=== PATIENT | female | born 1930 | race Caucasian/White ===

== ENCOUNTER 2016-11-16 15:15 | Outpatient (RCR) | payer MEDICARE, BC ==
[~2016-11-16 15:15] MED LIST: ACTONEL35 MG PO; BACTRIM DS 8001 TAB PO; CALCIUM 600600 M2 PO; CALCIUM1 CAP PO; CELEBREX 200MG200 MG PO; CEPHALEXIN500 M1 PO; CLARITIN 1010 MG/TAB PO; CLEOCIN HCL300 MG PO; DETROL LA 4MG4 MG PO; DETROL LA4 PO; GLUCOSAMIN 500 PO; GLUCOSAMINE & C1 CA2 PO; GLUCOSAMINE PO; GLUCOSAMINE500 M1 PO; HCTZ 25MG25 MG PO; LEVAQUIN 5500 MG/TA1 PO; LEVOXYL0.05 MG PO; LIPITOR 10MG10 MG PO; LIPITOR20 MG PO; LOPRESSOR 225 MG/TAB PO; LOPRESSOR 550 MG/TAB PO; MICONAZOLE2%; MICROZIDE12.5 MG PO; MULTAQ400 MG PO; MULTI VITAMINS1 TAB PO; NORVASC 5MG5 MG/TAB PO; NYSTATIN POWDER15 GM TOP; OSCAL W/VIT D250 MG PO; PRILOSEC 20MG20 MG PO; RYBIX ODT50 MG PO; SYNTHROID0.05 MG/TA PO; ULTRAM 50MG TAB50 MG PO; ULTRAM50 MG PO; VESICARE 5MG5 MG PO; VICODIN 5/5001 UDTAB PO; XARELTO10 MG PO; ZOLOFT 50MG50 MG PO; ZOLOFT25 MG PO
[2016-11-19] MEDS ORDERED: PROBIOTIC-MAJOR PO (03:10)
== END 2016-12-09 08:01 | disposition home or self-care (01) ==
LOC: WSOT 15:15
DX: S52.592D Other fractures of lower end of left radius, subsequent encounter for closed fracture with routine healing (principal); M19.042 Primary osteoarthritis, left hand; X58.XXXD Exposure to other specified factors, subsequent encounter
CPT/HCPCS: G8987-GO; G8988-GO; G8989-GO

== ENCOUNTER 2016-11-19 00:06 | Inpatient (IN) | payer MEDICARE, BC ==
[~2016-11-19] VITALS: Ht 162.6 cm; Wt 77.4 kg
[2016-11-19 00:41] LABS: BASO # 0.1 (0.0-0.2); BASO % 0.9 % (0.0-2.0); EOS # 0.1 (0.0-0.7); EOS % 1.4 % (0-4.0); GRAN # 7.3 (1.4-6.5); GRAN % 73.6 % (42.2-75.2); HEMATOCRIT 42.6 % (37.0-47.0); HEMOGLOBIN 13.8 g/dl (12.5-16.0); LYMPH # 1.8 (1.2-3.4); LYMPH % 17.8 % (20.0-51.0); MEAN CELL VOLUME 96 fl (80.0-100.0); MEAN CORPUSCULAR HEMOGLOBIN 31 pg (27.0-31.0); MEAN CORPUSCULAR HGB CONC 32 g/dl (33.0-37.0); MEAN PLATELET VOLUME 9.3 fl (7.4-10.4); MONO # 0.6 (0.1-0.6); MONO % 6.1 % (1.7-9.3); PLATELET COUNT 245 K/mm3 (130-400); RED BLOOD COUNT 4.46 M/mm3 (4.10-5.30); REDCELL DISTRIBUTION WIDTH-CV 12.6 % (11.5-14.5); WHITE BLOOD COUNT 9.9 K/mm3 (4.8-10.8)
[2016-11-19 00:52] LABS: INR 1.4 (0.8-3.0); PROTHROMBIN TIME 15.7 SECONDS (9.7-12.8)
[2016-11-19 00:54] LABS: ADJUSTED CALCIUM 9.6 mg/dL (8.4-10.2); ALANINE AMINOTRANSFERASE 36 U/L (9-52); ALBUMIN 4.4 gm/dL (3.5-5.0); ALKALINE PHOSPHATASE 96 U/L (50-136); ANION GAP 13 mmol/L (7-16); BILIRUBIN,TOTAL 0.7 mg/dL (0.0-1.0); BLOOD UREA NITROGEN 16 mg/dL (7-17); CALCIUM 9.9 mg/dL (8.4-10.2); CARBON DIOXIDE 29 mmol/L (22-30); CHLORIDE 100 mmol/L (98-107); CREATININE, serum 1.08 mg/dL (0.52-1.25); GLUCOSE 135 mg/dL (74-106); LIPASE 56 U/L (23-300); POTASSIUM 4.3 mmol/L (3.4-5.0); SODIUM 141 mmol/L (137-145); TOTAL PROTEIN 7.7 gm/dL (6.4-8.2)
[2016-11-19 00:55] LABS: C-REACTIVE PROTEIN < 0.5 mg/dL (0.0-0.9)
[2016-11-19 01:05] LABS: TROPONIN-I < 0.012 ng/mL (0.000-0.034)
[2016-11-19 02:05] LABS: PH 7 (5-8); SQUAMOUS EPITHELIAL 0-2 /hpf; URINE APPEARANCE Hazy; URINE BACTERIA None Seen /hpf; URINE BILIRUBIN Negative (NEGATIVE); URINE BLOOD Negative (NEGATIVE); URINE COLOR Yellow; URINE GLUCOSE Negative (NEGATIVE); URINE KETONE Negative (NEGATIVE); URINE RBC 0-2 /hpf; URINE UROBILINOGEN Negative (NEGATIVE); URINE WBC 0-2 /hpf
[2016-11-19 02:37] VITALS: BP 174/60; PULSE 65; TEMP 97.7
[2016-11-19] MEDS ORDERED: PROBIOTIC-MAJOR PO (03:10)
[2016-11-19 06:02] VITALS: BP 133/43; PULSE 63; TEMP 98.2
[2016-11-19 10:55] VITALS: BP 132/60; PULSE 68; TEMP 98.7
[2016-11-19 14:26] VITALS: BP 122/65; PULSE 79; TEMP 98.3
[2016-11-19 18:24] VITALS: BP 132/61; PULSE 65; TEMP 98.6
[2016-11-19 22:19] VITALS: BP 164/66; PULSE 85; TEMP 99.3
[2016-11-20 01:39] VITALS: BP 113/52; PULSE 84; TEMP 98.9
[2016-11-20 05:19] VITALS: BP 125/58; PULSE 91; TEMP 98.9
[2016-11-20 07:18] LABS: MEAN CELL VOLUME 100 fl (80.0-100.0); MEAN CORPUSCULAR HGB CONC 31 g/dl (33.0-37.0); MEAN PLATELET VOLUME 9.7 fl (7.4-10.4); PLATELET COUNT 176 K/mm3 (130-400); RED BLOOD COUNT 3.39 M/mm3 (4.10-5.30); REDCELL DISTRIBUTION WIDTH-CV 13.2 % (11.5-14.5); WHITE BLOOD COUNT 4.8 K/mm3 (4.8-10.8)
[2016-11-20 07:22] LABS: ADD PATHOLOGY DIFF REVIEW NO; HEMOGLOBIN 10.5 g/dl (12.5-16.0); MEAN CORPUSCULAR HEMOGLOBIN 31 pg (27.0-31.0)
[2016-11-20 07:30] LABS: CALCIUM 8.4 mg/dL (8.4-10.2); CREATININE, serum 0.89 mg/dL (0.52-1.25); POTASSIUM 4.5 mmol/L (3.4-5.0)
[2016-11-20 07:47] LABS: BAND 25 % (0-10); BASOPHIL 1 % (0-2); EOSINOPHIL 2 % (0-4); HYPOCHROMIA 2+; METAMYELOCYTE 3 % (0-0); NEUTROPHILS 35 % (42.0-75.2); PLATELET ESTIMATE NORMAL (NORMAL); TOTAL CELLS COUNTED 100
[2016-11-20 10:00] VITALS: BP 121/47; PULSE 80; TEMP 98.4
[2016-11-20 13:30] VITALS: BP 133/60; PULSE 88; TEMP 98.9
[2016-11-20 17:22] VITALS: BP 123/54; PULSE 84; TEMP 98.7
[2016-11-20 22:01] VITALS: BP 117/67; BP 151/69; PULSE 75; PULSE 80; TEMP 98
[2016-11-21 05:04] VITALS: BP 151/70; PULSE 86; TEMP 98.2
[2016-11-21 06:59] LABS: ADD PATHOLOGY DIFF REVIEW NO
[2016-11-21 07:03] LABS: MEAN CELL VOLUME 102 fl (80.0-100.0); MEAN CORPUSCULAR HGB CONC 31 g/dl (33.0-37.0); MEAN PLATELET VOLUME 9.7 fl (7.4-10.4); PLATELET COUNT 168 K/mm3 (130-400); RED BLOOD COUNT 3.41 M/mm3 (4.10-5.30); REDCELL DISTRIBUTION WIDTH-CV 12.8 % (11.5-14.5); WHITE BLOOD COUNT 5.8 K/mm3 (4.8-10.8)
[2016-11-21 07:08] LABS: HEMATOCRIT 34.7 % (37.0-47.0); HEMOGLOBIN 10.6 g/dl (12.5-16.0); MEAN CORPUSCULAR HEMOGLOBIN 31 pg (27.0-31.0)
[2016-11-21 08:23] LABS: BAND 29 % (0-10); BASOPHIL 1 % (0-2); EOSINOPHIL 3 % (0-4); METAMYELOCYTE 1 % (0-0); NEUTROPHILS 43 % (42.0-75.2); TOTAL CELLS COUNTED 100
[2016-11-21 09:39] VITALS: BP 146/60; PULSE 88; TEMP 98.7
[2016-11-21 13:24] VITALS: BP 123/72; PULSE 79; TEMP 99.1
[2016-11-21 17:45] VITALS: BP 163/82; PULSE 100; TEMP 98.2
[2016-11-21 21:26] VITALS: BP 177/70; PULSE 71; TEMP 97
[2016-11-22 05:40] VITALS: BP 146/78; PULSE 87; TEMP 97.2
[2016-11-22 09:29] VITALS: BP 147/70; PULSE 74; TEMP 97.7
[2016-11-22 13:52] VITALS: BP 149/57; PULSE 60; TEMP 97.7
== END 2016-11-22 18:30 | disposition home or self-care (01) | DRG 390 ==
LOC: COL.ER 00:06 → SURG 02:02
PROVIDERS: Emergency Medicine; Nurse Practitioner Family; Surgery
DX: K56.69 Other intestinal obstruction (principal); I10 Essential (primary) hypertension; E03.9 Hypothyroidism, unspecified; I48.0 Paroxysmal atrial fibrillation; E78.5 Hyperlipidemia, unspecified; I44.0 Atrioventricular block, first degree; F32.9 Major depressive disorder, single episode, unspecified
CPT/HCPCS: 99222-AI; 99232-AI; 99239; C9113; J1650; J2270; J2405; J7030; Q9967

== ENCOUNTER → 2016-12-05 | Outpatient (CLI) | payer MEDICARE, BC ==
[~2016-12-05] MED LIST changes: +DULCOLAX STOOL100 MG PO; +OMNICEF 300MG300 MG PO; +PROBIOTIC-MAJOR PO; +XARELTO20 MG PO; +XYZAL5 MG PO; +ZITHROMAX500 M2 PO
== END ==
LOC: MHCPAIN 10:16
DX: G89.29 Other chronic pain (principal); M53.3 Sacrococcygeal disorders, not elsewhere classified
CPT/HCPCS: G0463

== ENCOUNTER → 2016-12-22 | Outpatient (CLI) | payer MEDICARE, BC | LOC: MHCPAIN 08:53 | DX: M53.3 Sacrococcygeal disorders, not elsewhere classified (principal) | CPT/HCPCS: G0260; J1040; Q9967 ==

== ENCOUNTER 2017-04-07 08:18 | Inpatient (IN) | payer MEDICARE, BC ==
[~2017-04-07] VITALS: Ht 165.1 cm; Wt 76.5 kg
[~2017-04-07 08:18] MED LIST changes: -DULCOLAX STOOL100 MG PO; -OMNICEF 300MG300 MG PO; -XARELTO20 MG PO; -XYZAL5 MG PO; -ZITHROMAX500 M2 PO
[2017-04-07 09:08] LABS: HEMATOCRIT 37.6 % (37.0-47.0); MEAN CELL VOLUME 99 fl (80.0-100.0); MEAN CORPUSCULAR HEMOGLOBIN 31 pg (27.0-31.0); MEAN CORPUSCULAR HGB CONC 32 g/dl (33.0-37.0); MEAN PLATELET VOLUME 9.7 fl (7.4-10.4); PLATELET COUNT 185 K/mm3 (130-400); RED BLOOD COUNT 3.81 M/mm3 (4.10-5.30); REDCELL DISTRIBUTION WIDTH-CV 12.9 % (11.5-14.5); WHITE BLOOD COUNT 13.6 K/mm3 (4.8-10.8)
[2017-04-07 09:08] LABS: INR 1.6 (0.8-3.0); PROTHROMBIN TIME 18.5 SECONDS (9.7-12.8)
[2017-04-07 09:11] LABS: PARTIAL THROMBOPLASTIN TIME 40.6 SECONDS (26.0-37.0)
[2017-04-07 09:20] LABS: HEMOGLOBIN 11.9 g/dl (12.5-16.0)
[2017-04-07 09:21] LABS: ADD PATHOLOGY DIFF REVIEW NO; ADJUSTED CALCIUM 8.9 mg/dL (8.4-10.2); ALANINE AMINOTRANSFERASE 22 U/L (9-52); ALBUMIN 3.7 gm/dL (3.5-5.0); ALKALINE PHOSPHATASE 66 U/L (50-136); ANION GAP 10 mmol/L (7-16); BILIRUBIN,TOTAL 0.8 mg/dL (0.0-1.0); BLOOD UREA NITROGEN 22 mg/dL (7-17); C-REACTIVE PROTEIN 0.9 mg/dL (0.0-0.9); CALCIUM 8.7 mg/dL (8.4-10.2); CARBON DIOXIDE 26 mmol/L (22-30); CHLORIDE 101 mmol/L (98-107); CREATININE, serum 0.96 mg/dL (0.52-1.25); GLUCOSE 107 mg/dL (74-106); LIPASE 44 U/L (23-300); POTASSIUM 4.6 mmol/L (3.4-5.0); SODIUM 137 mmol/L (137-145); TOTAL PROTEIN 6.2 gm/dL (6.4-8.2)
[2017-04-07 09:29] LABS: B-TYPE NATRIURETIC PEPTIDE 3020 pg/mL (0-450)
[2017-04-07 09:41] LABS: TROPONIN-I < 0.012 ng/mL (0.000-0.034)
[2017-04-07 10:11] LABS: BAND 22 % (0-10); NEUTROPHILS 68 % (42.0-75.2); PLATELET ESTIMATE NORMAL (NORMAL); TOTAL CELLS COUNTED 100
[2017-04-07 10:40] LABS: PH 6 (5-8); URINE APPEARANCE Cloudy; URINE BACTERIA Rare /hpf; URINE BILIRUBIN Negative (NEGATIVE); URINE BLOOD Negative (NEGATIVE); URINE COLOR Yellow; URINE GLUCOSE Negative (NEGATIVE); URINE KETONE Negative (NEGATIVE); URINE RBC 0-2 /hpf; URINE UROBILINOGEN Negative (NEGATIVE)
[2017-04-07 12:28] VITALS: BP 114/52; PULSE 78; TEMP 98.2
[2017-04-07 15:29] VITALS: BP 115/43; PULSE 72; TEMP 96
[2017-04-07 20:49] VITALS: BP 118/50; PULSE 65; TEMP 98.1
[2017-04-08 00:41] VITALS: BP 123/46; PULSE 63; TEMP 98.5
[2017-04-08 04:58] VITALS: BP 125/47; PULSE 68; TEMP 98.2
[2017-04-08 08:06] VITALS: BP 132/84; PULSE 60; TEMP 98.3
[2017-04-08 09:40] LABS: MEAN CELL VOLUME 99 fl (80.0-100.0); MEAN CORPUSCULAR HGB CONC 31 g/dl (33.0-37.0); PLATELET COUNT 170 K/mm3 (130-400); RED BLOOD COUNT 3.55 M/mm3 (4.10-5.30); REDCELL DISTRIBUTION WIDTH-CV 13.2 % (11.5-14.5); WHITE BLOOD COUNT 10.9 K/mm3 (4.8-10.8)
[2017-04-08 09:44] LABS: HEMATOCRIT 35.2 % (37.0-47.0); MEAN CORPUSCULAR HEMOGLOBIN 31 pg (27.0-31.0)
[2017-04-08 09:45] LABS: ADD PATHOLOGY DIFF REVIEW NO
[2017-04-08 09:47] LABS: CALCIUM 8.5 mg/dL (8.4-10.2); CREATININE, serum 0.84 mg/dL (0.52-1.25)
[2017-04-08 11:49] VITALS: BP 147/57; PULSE 71; TEMP 97.6
[2017-04-08 13:54] LABS: BAND 5 % (0-10); NEUTROPHILS 76 % (42.0-75.2); PLATELET ESTIMATE NORMAL (NORMAL); TOTAL CELLS COUNTED 100
[2017-04-08 15:30] VITALS: BP 125/50; PULSE 56
[2017-04-08 20:30] VITALS: BP 125/54; PULSE 62; TEMP 98.3
[2017-04-09 00:03] VITALS: BP 154/60; PULSE 58; TEMP 98
[2017-04-09 05:50] VITALS: BP 108/66; PULSE 64; TEMP 97.7
[2017-04-09 08:14] VITALS: BP 113/53; PULSE 60; TEMP 97.9
[2017-04-09 11:14] VITALS: BP 122/61; PULSE 58; TEMP 97.8
[2017-04-09 15:46] VITALS: BP 117/58; PULSE 60; TEMP 97.1
[2017-04-09 21:04] VITALS: BP 144/77; PULSE 58; TEMP 98.2
[2017-04-10 01:07] VITALS: BP 142/55; PULSE 60; TEMP 97.6
[2017-04-10 05:08] VITALS: BP 137/53; PULSE 71; TEMP 97.7
[2017-04-10] MEDS ORDERED: ZITHROMAX500 M2 PO (07:55)
[2017-04-10] MEDS ORDERED: OMNICEF 300MG300 MG PO (07:55)
[2017-04-10 08:01] VITALS: BP 156/71; PULSE 62; TEMP 97.8
[2017-04-10 08:07] LABS: CALCIUM 8.8 mg/dL (8.4-10.2); CREATININE, serum 0.98 mg/dL (0.52-1.25); MAGNESIUM 2.1 mg/dL (1.6-2.3); POTASSIUM 4.1 mmol/L (3.4-5.0)
[2017-04-10 10:54] VITALS: BP 120/71; PULSE 62; TEMP 98.6
== END 2017-04-10 16:40 | disposition home or self-care (01) | DRG 195 ==
LOC: COL.ER 08:18 → MEDICAL 10:20
PROVIDERS: Emergency Medicine; Internal Medicine; Physician Assistant
DX: J18.9 Pneumonia, unspecified organism (principal); I10 Essential (primary) hypertension; E03.9 Hypothyroidism, unspecified; K21.9 Gastro-esophageal reflux disease without esophagitis; E78.5 Hyperlipidemia, unspecified; R00.1 Bradycardia, unspecified; H92.01 Otalgia, right ear; R07.89 Other chest pain; Z98.1 Arthrodesis status
CPT/HCPCS: 99223-AI; 99232-AI; 99239; J0456; J0696; J2405; J3010; J7030; J7040; J7050; Q9967

== ENCOUNTER 2017-04-19 12:24 | Day surgery (SDC) | payer MEDICARE, BC ==
[~2017-04-19] VITALS: Ht 165.1 cm; Wt 72.7 kg
[~2017-04-19 12:24] MED LIST changes: +OMNICEF 300MG300 MG PO; +ZITHROMAX500 M2 PO
[2017-04-19 13:03] LABS: MEAN CELL VOLUME 98 fl (80.0-100.0); MEAN CORPUSCULAR HGB CONC 33 g/dl (33.0-37.0); MEAN PLATELET VOLUME 8.9 fl (7.4-10.4); PLATELET COUNT 286 K/mm3 (130-400); RED BLOOD COUNT 3.66 M/mm3 (4.10-5.30); REDCELL DISTRIBUTION WIDTH-CV 12.4 % (11.5-14.5); WHITE BLOOD COUNT 6.3 K/mm3 (4.8-10.8)
[2017-04-19 13:09] LABS: HEMATOCRIT 35.7 % (37.0-47.0); HEMOGLOBIN 11.6 g/dl (12.5-16.0); MEAN CORPUSCULAR HEMOGLOBIN 32 pg (27.0-31.0); PROTHROMBIN TIME 11.4 SECONDS (9.7-12.8)
[2017-04-19 13:20] LABS: CREATININE, serum 1.01 mg/dL (0.52-1.25); POTASSIUM 4.5 mmol/L (3.4-5.0)
[2017-04-19] MEDS ORDERED: XYZAL5 MG PO (13:27)
[2017-04-19] MEDS ORDERED: DULCOLAX STOOL100 MG PO (13:28)
[2017-04-19] MEDS ORDERED: MULTAQ400 MG PO (13:30)
[2017-04-19] MEDS ORDERED: XARELTO20 MG PO (13:34)
[2017-04-19 13:47] VITALS: BP 132/64; PULSE 56; TEMP 98.3
[2017-04-19 14:44] VITALS: BP 175/92; PULSE 60
[2017-04-19 16:33] VITALS: BP 138/63; PULSE 60; TEMP 98.3
[2017-04-19 17:03] VITALS: BP 148/83; PULSE 60; TEMP 98.3
[2017-04-19 17:50] VITALS: BP 147/86; PULSE 60; TEMP 98.3
[2017-04-19 20:35] VITALS: BP 146/58; PULSE 59; TEMP 98
[2017-04-20 00:37] VITALS: BP 189/86; PULSE 80; TEMP 98.1
[2017-04-20 01:33] VITALS: BP 158/73
[2017-04-20 04:29] VITALS: BP 183/81; PULSE 72; TEMP 98.8
[2017-04-20 05:25] VITALS: BP 147/95
[2017-04-20 08:07] VITALS: BP 154/71; PULSE 62; TEMP 98.2
[2017-04-20 11:59] VITALS: BP 154/63; PULSE 63; TEMP 97.8
[2017-04-20] MEDS ORDERED: CEPHALEXIN500 M1 PO (13:00)
== END 2017-04-20 17:35 | disposition home or self-care (01) ==
LOC: COL.CAR 12:24 → MEDICAL 16:13 → COL.CAR 04-20 17:35
PROVIDERS: Internal Medicine Cardiovascular Disease
DX: I44.1 Atrioventricular block, second degree (principal); I25.10 Atherosclerotic heart disease of native coronary artery without angina pectoris; I48.91 Unspecified atrial fibrillation; J30.9 Allergic rhinitis, unspecified; I27.0 Primary pulmonary hypertension; K21.9 Gastro-esophageal reflux disease without esophagitis; E78.00 Pure hypercholesterolemia, unspecified; E03.9 Hypothyroidism, unspecified; K55.9 Vascular disorder of intestine, unspecified; M81.8 Other osteoporosis without current pathological fracture; Z79.01 Long term (current) use of anticoagulants
CPT/HCPCS: OP; C1769; C1785; C1898; J0690; J2250; J3010; J7030

== ENCOUNTER → 2017-05-17 | Outpatient (CLI) | payer MEDICARE, BC ==
[~2017-05-17] MED LIST changes: +DULCOLAX STOOL100 MG PO; +XARELTO20 MG PO; +XYZAL5 MG PO
== END ==
LOC: COL.RAD 10:09
DX: E04.2 Nontoxic multinodular goiter (principal)

== ENCOUNTER → 2017-05-31 | Outpatient (CLI) | payer MEDICARE, BC | LOC: COL.RAD 10:29 | DX: M47.816 Spondylosis without myelopathy or radiculopathy, lumbar region (principal); M43.16 Spondylolisthesis, lumbar region; M48.06 Spinal stenosis, lumbar region; Z98.1 Arthrodesis status; M96.1 Postlaminectomy syndrome, not elsewhere classified ==

== ENCOUNTER → 2017-05-31 | Outpatient (CLI) | payer MEDICARE, BC | LOC: MHCPAIN 09:14 | DX: G89.29 Other chronic pain (principal); M47.817 Spondylosis without myelopathy or radiculopathy, lumbosacral region; M53.3 Sacrococcygeal disorders, not elsewhere classified; M96.1 Postlaminectomy syndrome, not elsewhere classified | CPT/HCPCS: G0463 ==

== ENCOUNTER → 2017-06-08 | Outpatient (CLI) | payer MEDICARE, BC | LOC: MHCPAIN 08:42 | DX: M47.817 Spondylosis without myelopathy or radiculopathy, lumbosacral region (principal); M96.1 Postlaminectomy syndrome, not elsewhere classified | CPT/HCPCS: J1040; Q9967 ==

== ENCOUNTER → 2017-06-23 | Outpatient (CLI) | payer MEDICARE, BC | LOC: MHCPAIN 09:28 | DX: G89.29 Other chronic pain (principal); M47.817 Spondylosis without myelopathy or radiculopathy, lumbosacral region; M53.3 Sacrococcygeal disorders, not elsewhere classified; M96.1 Postlaminectomy syndrome, not elsewhere classified; Z79.02 Long term (current) use of antithrombotics/antiplatelets | CPT/HCPCS: G0463 ==

== ENCOUNTER 2017-08-03 20:13 | Inpatient (IN) | payer MEDICARE, BC ==
[~2017-08-03] VITALS: Ht 162.6 cm; Wt 72.5 kg
[2017-08-03 21:09] LABS: PH 7 (5-8); SQUAMOUS EPITHELIAL 0-2 /hpf; URINE APPEARANCE Cloudy; URINE BACTERIA None Seen /hpf; URINE BILIRUBIN Negative (NEGATIVE); URINE BLOOD Negative (NEGATIVE); URINE COLOR Yellow; URINE GLUCOSE Negative (NEGATIVE); URINE KETONE Negative (NEGATIVE); URINE RBC 0-2 /hpf; URINE UROBILINOGEN Negative (NEGATIVE)
[2017-08-03 21:16] LABS: BASO # 0.1 (0.0-0.2); BASO % 0.7 % (0.0-2.0); EOS # 0.2 (0.0-0.7); GRAN # 6.1 (1.4-6.5); GRAN % 75.1 % (42.2-75.2); HEMATOCRIT 41.6 % (37.0-47.0); HEMOGLOBIN 13.4 g/dl (12.5-16.0); LYMPH # 1.2 (1.2-3.4); MEAN CELL VOLUME 96 fl (80.0-100.0); MEAN CORPUSCULAR HEMOGLOBIN 31 pg (27.0-31.0); MEAN CORPUSCULAR HGB CONC 32 g/dl (33.0-37.0); MEAN PLATELET VOLUME 9.4 fl (7.4-10.4); MONO # 0.6 (0.1-0.6); MONO % 7.1 % (1.7-9.3); PLATELET COUNT 215 K/mm3 (130-400); RED BLOOD COUNT 4.32 M/mm3 (4.10-5.30); REDCELL DISTRIBUTION WIDTH-CV 13.2 % (11.5-14.5); WHITE BLOOD COUNT 8.2 K/mm3 (4.8-10.8)
[2017-08-03 21:31] LABS: ADJUSTED CALCIUM 9.5 mg/dL (8.4-10.2); ALANINE AMINOTRANSFERASE 23 U/L (9-52); ALBUMIN 4.2 gm/dL (3.5-5.0); ALKALINE PHOSPHATASE 86 U/L (50-136); ANION GAP 9 mmol/L (7-16); BILIRUBIN,TOTAL 0.7 mg/dL (0.0-1.0); BLOOD UREA NITROGEN 24 mg/dL (7-17); C-REACTIVE PROTEIN < 0.5 mg/dL (0.0-0.9); CALCIUM 9.7 mg/dL (8.4-10.2); CARBON DIOXIDE 29 mmol/L (22-30); CHLORIDE 99 mmol/L (98-107); CREATININE, serum 1.08 mg/dL (0.52-1.25); GLUCOSE 98 mg/dL (74-106); LIPASE 43 U/L (23-300); POTASSIUM 4.5 mmol/L (3.4-5.0); SODIUM 137 mmol/L (137-145); TOTAL PROTEIN 7.2 gm/dL (6.4-8.2)
[2017-08-03 21:42] LABS: TROPONIN-I < 0.012 ng/mL (0.000-0.034)
[2017-08-03 23:40] VITALS: BP 151/102; PULSE 78; TEMP 98
[2017-08-04 01:41] VITALS: BP 150/51; PULSE 73; TEMP 98.6
[2017-08-04 04:59] VITALS: BP 117/70; PULSE 81; TEMP 98.7
[2017-08-04 07:11] LABS: HEMATOCRIT 39.3 % (37.0-47.0); HEMOGLOBIN 12.7 g/dl (12.5-16.0); MEAN CELL VOLUME 97 fl (80.0-100.0); MEAN CORPUSCULAR HEMOGLOBIN 31 pg (27.0-31.0); MEAN CORPUSCULAR HGB CONC 32 g/dl (33.0-37.0); MEAN PLATELET VOLUME 9.5 fl (7.4-10.4); PLATELET COUNT 185 K/mm3 (130-400); RED BLOOD COUNT 4.07 M/mm3 (4.10-5.30); REDCELL DISTRIBUTION WIDTH-CV 13.2 % (11.5-14.5); WHITE BLOOD COUNT 7.3 K/mm3 (4.8-10.8)
[2017-08-04 07:12] LABS: ADD PATHOLOGY DIFF REVIEW NO
[2017-08-04 07:21] LABS: CALCIUM 8.7 mg/dL (8.4-10.2); CREATININE, serum 0.89 mg/dL (0.52-1.25); POTASSIUM 4.7 mmol/L (3.4-5.0)
[2017-08-04 07:41] LABS: BAND 32 % (0-10); EOSINOPHIL 1 % (0-4); NEUTROPHILS 43 % (42.0-75.2); TOTAL CELLS COUNTED 100
[2017-08-04 07:43] LABS: PLATELET ESTIMATE NORMAL (NORMAL)
[2017-08-04 11:10] VITALS: BP 108/62; PULSE 72; TEMP 97.9
[2017-08-04 13:33] VITALS: BP 127/50; PULSE 72; TEMP 98.1
[2017-08-04 18:30] VITALS: BP 118/63; PULSE 70; TEMP 98.9
[2017-08-04 21:00] VITALS: BP 116/50; PULSE 91; TEMP 100.9
[2017-08-05 02:45] VITALS: BP 120/56; TEMP 99.9
[2017-08-05 06:13] VITALS: BP 125/60; PULSE 89; TEMP 99.3
[2017-08-05 07:59] LABS: MEAN CELL VOLUME 101 fl (80.0-100.0); MEAN CORPUSCULAR HGB CONC 31 g/dl (33.0-37.0); MEAN PLATELET VOLUME 10.2 fl (7.4-10.4); PLATELET COUNT 177 K/mm3 (130-400); RED BLOOD COUNT 3.62 M/mm3 (4.10-5.30); REDCELL DISTRIBUTION WIDTH-CV 13.7 % (11.5-14.5)
[2017-08-05 08:04] LABS: ADD PATHOLOGY DIFF REVIEW NO; HEMATOCRIT 36.5 % (37.0-47.0); HEMOGLOBIN 11.3 g/dl (12.5-16.0); MEAN CORPUSCULAR HEMOGLOBIN 31 pg (27.0-31.0)
[2017-08-05 08:13] LABS: CALCIUM 8.2 mg/dL (8.4-10.2); CREATININE, serum 0.99 mg/dL (0.52-1.25); POTASSIUM 4.2 mmol/L (3.4-5.0)
[2017-08-05 09:10] LABS: BAND 41 % (0-10); METAMYELOCYTE 2 % (0-0); MYELOCYTE 1 % (0-0); NEUTROPHILS 27 % (42.0-75.2); OVALOCYTES 1+; PLATELET ESTIMATE NORMAL (NORMAL); TOTAL CELLS COUNTED 100
[2017-08-05 09:29] VITALS: BP 113/52; PULSE 87; TEMP 99.1
[2017-08-05 14:07] VITALS: BP 132/53; PULSE 65; TEMP 98.2
[2017-08-05 17:41] VITALS: BP 138/38; PULSE 56; TEMP 98.3
[2017-08-05 22:00] VITALS: BP 140/52; PULSE 56; TEMP 99
[2017-08-06 00:27] VITALS: BP 140/48; PULSE 74; TEMP 98.4
[2017-08-06 06:40] VITALS: BP 150/72; PULSE 68; TEMP 99.1
[2017-08-06 08:26] LABS: BASO % 0.3 % (0.0-2.0); EOS # 0.2 (0.0-0.7); EOS % 3.6 % (0-4.0); GRAN # 4.2 (1.4-6.5); GRAN % 68.6 % (42.2-75.2); LYMPH # 1.1 (1.2-3.4); LYMPH % 17.4 % (20.0-51.0); MEAN CELL VOLUME 99 fl (80.0-100.0); MEAN CORPUSCULAR HGB CONC 31 g/dl (33.0-37.0); MEAN PLATELET VOLUME 10.2 fl (7.4-10.4); MONO # 0.6 (0.1-0.6); MONO % 9.9 % (1.7-9.3); PLATELET COUNT 168 K/mm3 (130-400); RED BLOOD COUNT 3.64 M/mm3 (4.10-5.30); REDCELL DISTRIBUTION WIDTH-CV 13.3 % (11.5-14.5); WHITE BLOOD COUNT 6.1 K/mm3 (4.8-10.8)
[2017-08-06 08:28] LABS: HEMATOCRIT 36.1 % (37.0-47.0); HEMOGLOBIN 11.3 g/dl (12.5-16.0); MEAN CORPUSCULAR HEMOGLOBIN 31 pg (27.0-31.0)
[2017-08-06 08:41] LABS: CREATININE, serum 0.9 mg/dL (0.52-1.25)
[2017-08-06 09:30] VITALS: BP 142/63; PULSE 70; TEMP 98.4
[2017-08-06 10:33] LABS: CALCIUM 8.7 mg/dL (8.4-10.2)
[2017-08-06 13:30] VITALS: BP 148/64; PULSE 81; TEMP 98.1
[2017-08-06 17:59] VITALS: BP 127/65; PULSE 52; TEMP 98.8
[2017-08-06 21:56] VITALS: BP 147/58; PULSE 64; TEMP 98.1
[2017-08-07 02:06] VITALS: BP 141/57; PULSE 111; TEMP 98.4
[2017-08-07 05:44] VITALS: BP 145/67; PULSE 85; TEMP 98.6
[2017-08-07 10:19] VITALS: BP 131/59; PULSE 100; TEMP 98.5
[2017-08-07 14:12] VITALS: BP 130/65; PULSE 69; TEMP 98.6
== END 2017-08-07 18:50 | disposition home or self-care (01) | DRG 389 ==
LOC: COL.ER 20:13 → SURG 22:34
PROVIDERS: Emergency Medicine; Nurse Practitioner; Nurse Practitioner Family; Physician Assistant
DX: K56.600 Partial intestinal obstruction, unspecified as to cause (principal); E87.2 Acidosis; I10 Essential (primary) hypertension; I16.0 Hypertensive urgency; I48.91 Unspecified atrial fibrillation; Z79.01 Long term (current) use of anticoagulants; Z95.0 Presence of cardiac pacemaker
CPT/HCPCS: 99223-AI; 99232-AI; 99233-AI; 99239; C9113; J1650; J1940; J2270; J2405; J7030; Q9967

== ENCOUNTER → 2017-09-29 | Outpatient (CLI) | payer MEDICARE, BC | LOC: MC.RAD 09-26 13:20 | DX: Z12.31 Encounter for screening mammogram for malignant neoplasm of breast (principal) ==

== ENCOUNTER 2017-10-27 15:00 | Outpatient (RCR) | payer MEDICARE, BC | END 2017-10-31 12:07 | disposition home or self-care (01) | LOC: WSPT 15:00 | DX: M54.5 Low back pain (principal); G89.29 Other chronic pain | CPT/HCPCS: G8978-GP; G8979-GP; G8980-GP ==

== ENCOUNTER → 2017-12-11 | Outpatient (CLI) | payer MEDICARE, BC | LOC: MHCPAIN 10:25 | DX: G89.29 Other chronic pain (principal); M47.817 Spondylosis without myelopathy or radiculopathy, lumbosacral region; M54.16 Radiculopathy, lumbar region; M53.3 Sacrococcygeal disorders, not elsewhere classified; M96.1 Postlaminectomy syndrome, not elsewhere classified | CPT/HCPCS: G0463 ==

== ENCOUNTER → 2018-01-04 | Outpatient (CLI) | payer MEDICARE, BC | LOC: MHCPAIN 10:16 | DX: M47.817 Spondylosis without myelopathy or radiculopathy, lumbosacral region (principal); M96.1 Postlaminectomy syndrome, not elsewhere classified | CPT/HCPCS: J1040; Q9967 ==

== ENCOUNTER → 2018-02-13 | Outpatient (CLI) | payer MEDICARE, BC | LOC: MHCPAIN 14:20 | DX: G89.29 Other chronic pain (principal); M47.817 Spondylosis without myelopathy or radiculopathy, lumbosacral region; M54.16 Radiculopathy, lumbar region; M53.3 Sacrococcygeal disorders, not elsewhere classified; M96.1 Postlaminectomy syndrome, not elsewhere classified | CPT/HCPCS: G0463 ==

== ENCOUNTER → 2018-04-16 | Outpatient (CLI) | payer MEDICARE, BC | LOC: MHCPAIN 13:39 | DX: G89.29 Other chronic pain (principal); M47.817 Spondylosis without myelopathy or radiculopathy, lumbosacral region; M54.16 Radiculopathy, lumbar region; M53.3 Sacrococcygeal disorders, not elsewhere classified; M96.1 Postlaminectomy syndrome, not elsewhere classified | CPT/HCPCS: G0463 ==

== ENCOUNTER → 2018-05-07 | Outpatient (CLI) | payer MEDICARE, BC | LOC: MHCPAIN 12:59 | DX: M47.817 Spondylosis without myelopathy or radiculopathy, lumbosacral region (principal); M96.1 Postlaminectomy syndrome, not elsewhere classified | CPT/HCPCS: J1040; Q9967 ==

== ENCOUNTER → 2018-06-13 | Outpatient (CLI) | payer MEDICARE, BC | LOC: MHCPAIN 10:30 | DX: G89.29 Other chronic pain (principal); M47.817 Spondylosis without myelopathy or radiculopathy, lumbosacral region; M54.16 Radiculopathy, lumbar region; M53.3 Sacrococcygeal disorders, not elsewhere classified; M96.1 Postlaminectomy syndrome, not elsewhere classified | CPT/HCPCS: G0463 ==

== ENCOUNTER → 2018-09-12 | Outpatient (CLI) | payer MEDICARE, BC | LOC: MHCPAIN 10:15 | DX: G89.29 Other chronic pain (principal); M47.817 Spondylosis without myelopathy or radiculopathy, lumbosacral region; M54.16 Radiculopathy, lumbar region; M53.3 Sacrococcygeal disorders, not elsewhere classified; M96.1 Postlaminectomy syndrome, not elsewhere classified | CPT/HCPCS: G0463 ==

== ENCOUNTER → 2018-09-27 | Outpatient (CLI) | payer MEDICARE, BC | LOC: MHCPAIN 08:47 | DX: M47.817 Spondylosis without myelopathy or radiculopathy, lumbosacral region (principal); M54.16 Radiculopathy, lumbar region | CPT/HCPCS: J1040; Q9967 ==

== ENCOUNTER → 2018-10-31 | Outpatient (CLI) | payer MEDICARE, BC | LOC: MHCPAIN 09:08 | DX: G89.29 Other chronic pain (principal); M47.817 Spondylosis without myelopathy or radiculopathy, lumbosacral region; M54.16 Radiculopathy, lumbar region; M53.3 Sacrococcygeal disorders, not elsewhere classified; M96.1 Postlaminectomy syndrome, not elsewhere classified | CPT/HCPCS: G0463 ==

== ENCOUNTER → 2018-11-06 | Outpatient (CLI) | payer MEDICARE, BC | LOC: MC.RAD 11:27 | DX: Z12.31 Encounter for screening mammogram for malignant neoplasm of breast (principal) ==

== ENCOUNTER → 2019-01-30 | Outpatient (CLI) | payer MEDICARE, BC | LOC: MHCPAIN 09:53 | DX: G89.29 Other chronic pain (principal); M47.817 Spondylosis without myelopathy or radiculopathy, lumbosacral region; M54.16 Radiculopathy, lumbar region; M53.3 Sacrococcygeal disorders, not elsewhere classified; M96.1 Postlaminectomy syndrome, not elsewhere classified | CPT/HCPCS: G0463 ==

== ENCOUNTER → 2019-02-04 | Outpatient (CLI) | payer MEDICARE, BC | LOC: MHCPAIN 10:36 | DX: M47.817 Spondylosis without myelopathy or radiculopathy, lumbosacral region (principal); M54.16 Radiculopathy, lumbar region ==

== ENCOUNTER → 2019-02-11 | Outpatient (CLI) | payer MEDICARE, BC | LOC: MHCPAIN 13:03 | DX: M47.817 Spondylosis without myelopathy or radiculopathy, lumbosacral region (principal); M54.16 Radiculopathy, lumbar region; M53.3 Sacrococcygeal disorders, not elsewhere classified; M96.1 Postlaminectomy syndrome, not elsewhere classified; G89.29 Other chronic pain | CPT/HCPCS: G0463; J1100; J3010 ==

== ENCOUNTER → 2019-03-11 | Outpatient (CLI) | payer MEDICARE, BC | LOC: MHCPAIN 11:49 | DX: M47.817 Spondylosis without myelopathy or radiculopathy, lumbosacral region (principal); M54.16 Radiculopathy, lumbar region | CPT/HCPCS: J1100; J3010 ==

== ENCOUNTER → 2019-05-07 | Outpatient (CLI) | payer MEDICARE, BC | LOC: MHCPAIN 14:21 | DX: G89.29 Other chronic pain (principal); M47.817 Spondylosis without myelopathy or radiculopathy, lumbosacral region; M53.3 Sacrococcygeal disorders, not elsewhere classified; M96.1 Postlaminectomy syndrome, not elsewhere classified | CPT/HCPCS: G0463 ==

== ENCOUNTER 2019-05-22 11:15 | Outpatient (RCR) | payer MEDICARE, BC | END 2019-05-26 | disposition home or self-care (01) | LOC: WSPT | DX: M47.816 Spondylosis without myelopathy or radiculopathy, lumbar region (principal) ==

== ENCOUNTER → 2019-09-04 | Outpatient (CLI) | payer MEDICARE, BC ==
[~2019-09-04] MED LIST changes: +CYMBALTA 20MG20 MG PO
== END ==
LOC: MHCPAIN 09:19
DX: G89.29 Other chronic pain (principal); M47.817 Spondylosis without myelopathy or radiculopathy, lumbosacral region; M54.16 Radiculopathy, lumbar region; M53.3 Sacrococcygeal disorders, not elsewhere classified; M96.1 Postlaminectomy syndrome, not elsewhere classified
CPT/HCPCS: G0463

== ENCOUNTER 2019-09-11 09:09 | Outpatient (CLI) | payer MEDICARE, BC ==
[~2019-09-11] VITALS: Ht 162.6 cm; Wt 77.1 kg
[2019-09-11] VITALS (8 sets, daily range): BP systolic 145–178; BP diastolic 59–82; PULSE 62–79
[2019-09-11] MEDS ORDERED: ULTRAM 50MG TAB50 MG PO (09:22)
[2019-09-11] MEDS ORDERED: TYLENOL 8 HR PO (09:23)
--- NOTE | 2019-09-11 12:50 | NUR ---
Discharge instructions given to pt.Pt verbalize understanding.
--- NOTE | 2019-09-11 13:12 | NUR ---
Patient escorted out via wheelchair by this nurse.
== END 2019-09-11 13:16 | disposition home or self-care (01) ==
LOC: COL.RAD 09:09
DX: M96.1 Postlaminectomy syndrome, not elsewhere classified (principal); M48.061 Spinal stenosis, lumbar region without neurogenic claudication; M51.26 Other intervertebral disc displacement, lumbar region; M51.25 Other intervertebral disc displacement, thoracolumbar region; Z98.1 Arthrodesis status
CPT/HCPCS: Q9965

== ENCOUNTER → 2019-09-23 | Outpatient (CLI) | payer MEDICARE, BC ==
[~2019-09-23] MED LIST changes: +TYLENOL 8 HR PO
== END ==
LOC: MHCPAIN 10:39
DX: M48.061 Spinal stenosis, lumbar region without neurogenic claudication (principal); M96.1 Postlaminectomy syndrome, not elsewhere classified
CPT/HCPCS: J1100; Q9967

== ENCOUNTER → 2019-10-09 | Outpatient (CLI) | payer MEDICARE, BC | LOC: MHCPAIN 10:56 | DX: M54.16 Radiculopathy, lumbar region (principal); G89.29 Other chronic pain | CPT/HCPCS: G0463 ==

== ENCOUNTER 2019-12-23 13:15 | Outpatient (RCR) | payer MEDICARE, BC | END 2020-02-09 | disposition home or self-care (01) | LOC: WSPT | DX: M70.61 Trochanteric bursitis, right hip (principal); M70.62 Trochanteric bursitis, left hip; M54.5 Low back pain; G89.29 Other chronic pain ==

== ENCOUNTER → 2020-01-07 | Outpatient (CLI) | payer MEDICARE, BC | LOC: MHCPAIN 13:15 | DX: M47.26 Other spondylosis with radiculopathy, lumbar region (principal); M48.061 Spinal stenosis, lumbar region without neurogenic claudication; M96.1 Postlaminectomy syndrome, not elsewhere classified; I48.91 Unspecified atrial fibrillation | CPT/HCPCS: G0463 ==

== ENCOUNTER → 2020-03-31 | Outpatient (CLI) | payer MEDICARE, BC | LOC: MHCPAIN 09:45 | DX: M47.817 Spondylosis without myelopathy or radiculopathy, lumbosacral region (principal); M53.3 Sacrococcygeal disorders, not elsewhere classified; M54.5 Low back pain; M96.1 Postlaminectomy syndrome, not elsewhere classified; G89.29 Other chronic pain | CPT/HCPCS: G0463 ==

== ENCOUNTER → 2020-04-09 | Outpatient (CLI) | payer MEDICARE, BC | LOC: MHCPAIN 14:30 | DX: M47.817 Spondylosis without myelopathy or radiculopathy, lumbosacral region (principal); M54.5 Low back pain; M53.3 Sacrococcygeal disorders, not elsewhere classified; M96.1 Postlaminectomy syndrome, not elsewhere classified | CPT/HCPCS: J1100; Q9967 ==

== ENCOUNTER → 2020-07-01 | Outpatient (CLI) | payer MEDICARE, BC ==
[~2020-07-01] MED LIST changes: +00186-0370-20 IH; +CYMBALTA 30MG30 MG PO; +CYMBALTA 60MG60 MG PO; +DITROPAN 5MG TAB5 MG PO; +GLUCOPHAGE500 MG/TAB PO; +GLUCOSAMINE SU500 M2 PO; +LIDODERM 5% PATC1 EA TP; +LOPID 600M600 MG/TAB PO; +LYRICA 150MG C150 MG PO; +MELATIN 3 MG-11 TAB PO; +MIRALAX PA17 GM/Dose PO; +ONE-A-DAY ESSE1 EACH PO; +PROAIR HFA0.09 MG/AC IH; +PROBIOTIC BLEN1 EACH PO; +PROTONIX 40MG T40 MG PO; +REQUIP 0.5MG0.5 MG PO; +SPIRIVA RE2.5 MCG/Ac IH; +SYNTHROID0.075 MG/T PO; +SYNTHROID0.1 MG/TAB PO; +TIAZAC180 MG PO; +TRIAMCINOLONE A15 G3 TP; +TYLENOL 500MG500 MG PO; +TYLENOL PM EXTR1 TA1 PO; +ZYRTEC 10MG10 MG PO
== END ==
LOC: MHCPAIN 10:14
DX: M47.817 Spondylosis without myelopathy or radiculopathy, lumbosacral region (principal); M53.3 Sacrococcygeal disorders, not elsewhere classified; M96.1 Postlaminectomy syndrome, not elsewhere classified; M54.5 Low back pain
CPT/HCPCS: G0463

== ENCOUNTER 2020-07-02 14:29 | Inpatient (IN) | payer MEDICARE, BC ==
[~2020-07-02] VITALS: Ht 162.6 cm; Wt 65.9 kg
[~2020-07-02 14:29] MED LIST changes: -00186-0370-20 IH; -CYMBALTA 30MG30 MG PO; -CYMBALTA 60MG60 MG PO; -DITROPAN 5MG TAB5 MG PO; -GLUCOPHAGE500 MG/TAB PO; -GLUCOSAMINE SU500 M2 PO; -LIDODERM 5% PATC1 EA TP; -LOPID 600M600 MG/TAB PO; -LYRICA 150MG C150 MG PO; -MELATIN 3 MG-11 TAB PO; -MIRALAX PA17 GM/Dose PO; -ONE-A-DAY ESSE1 EACH PO; -PROAIR HFA0.09 MG/AC IH; -PROBIOTIC BLEN1 EACH PO; -PROTONIX 40MG T40 MG PO; -REQUIP 0.5MG0.5 MG PO; -SPIRIVA RE2.5 MCG/Ac IH; -SYNTHROID0.075 MG/T PO; -SYNTHROID0.1 MG/TAB PO; -TIAZAC180 MG PO; -TRIAMCINOLONE A15 G3 TP; -TYLENOL 500MG500 MG PO; -TYLENOL PM EXTR1 TA1 PO; -ZYRTEC 10MG10 MG PO
[2020-07-02 14:56] LABS: BASO % 0.5 % (0.0-2.0); EOS # 0.6 (0.0-0.7); EOS % 8.4 % (0-4.0); GRAN # 3.7 (1.4-6.5); GRAN % 56.8 % (42.2-75.2); HEMOGLOBIN 11.7 g/dl (12.5-16.0); LYMPH # 1.7 (1.2-3.4); MEAN CELL VOLUME 108 fl (80.0-100.0); MEAN CORPUSCULAR HEMOGLOBIN 35 pg (27.0-31.0); MEAN CORPUSCULAR HGB CONC 32 g/dl (33.0-37.0); MEAN PLATELET VOLUME 9.2 fl (7.4-10.4); MONO # 0.5 (0.1-0.6); MONO % 8.1 % (1.7-9.3); PLATELET COUNT 268 K/mm3 (130-400); RED BLOOD COUNT 3.39 M/mm3 (4.10-5.30); REDCELL DISTRIBUTION WIDTH-CV 13.2 % (11.5-14.5)
[2020-07-02 14:58] LABS: INR 1.3 (0.8-3.0); PROTHROMBIN TIME 14.3 SECONDS (9.7-12.8)
[2020-07-02 15:05] LABS: HEMATOCRIT 36.7 % (37.0-47.0)
[2020-07-02 15:06] LABS: ALANINE AMINOTRANSFERASE 12 U/L (4-34); ALBUMIN 4.2 gm/dL (3.5-5.0); ALKALINE PHOSPHATASE 98 U/L (50-136); ANION GAP 6 mmol/L (7-16); AST,SGOT 27 U/L (15-37); BILIRUBIN,TOTAL 0.4 mg/dL (0.0-1.0); BLOOD UREA NITROGEN 26 mg/dL (7-17); CALCIUM 9.2 mg/dL (8.4-10.2); CARBON DIOXIDE 33 mmol/L (22-30); CHLORIDE 99 mmol/L (98-107); CREATININE, serum 1.26 (0.52-1.25); GLUCOSE 91 mg/dL (74-106); POTASSIUM 4.7 mmol/L (3.4-5.0); SODIUM 138 mmol/L (137-145); TOTAL PROTEIN 6.8 gm/dL (6.4-8.2)
[2020-07-02 15:16] LABS: TROPONIN-I < 0.012 ng/mL (0.000-0.035)
[2020-07-02] MEDS ORDERED: SYNTHROID0.1 MG/TAB PO (16:10)
[2020-07-02] MEDS ORDERED: SPIRIVA RE2.5 MCG/Ac IH (16:12)
[2020-07-02] MEDS ORDERED: 00186-0370-20 IH (16:12)
[2020-07-02] MEDS ORDERED: LYRICA 150MG C150 MG PO (16:13)
[2020-07-02] MEDS ORDERED: PROAIR HFA0.09 MG/AC IH (16:13)
[2020-07-02] MEDS ORDERED: LIDODERM 5% PATC1 EA TP (16:14)
[2020-07-02] MEDS ORDERED: LOPID 600M600 MG/TAB PO (16:15)
[2020-07-02] MEDS ORDERED: ZYRTEC 10MG10 MG PO (16:15)
[2020-07-02] MEDS ORDERED: CYMBALTA 30MG30 MG PO (16:16)
[2020-07-02] MEDS ORDERED: GLUCOPHAGE500 MG/TAB PO (16:16)
[2020-07-02] MEDS ORDERED: PROTONIX 40MG T40 MG PO (16:17)
[2020-07-02] MEDS ORDERED: REQUIP 0.5MG0.5 MG PO (16:17)
[2020-07-02] MEDS ORDERED: LIPITOR20 MG PO (16:39)
[2020-07-02] MEDS ORDERED: TYLENOL 500MG500 MG PO (16:39)
[2020-07-02] MEDS ORDERED: XARELTO20 MG PO (16:58)
[2020-07-02] MEDS ORDERED: TRIAMCINOLONE A15 G3 TP (16:59)
[2020-07-02] MEDS ORDERED: PROBIOTIC BLEN1 EACH PO (17:00)
[2020-07-02] MEDS ORDERED: ULTRAM 50MG TAB50 MG PO (17:00)
[2020-07-02] MEDS ORDERED: ONE-A-DAY ESSE1 EACH PO (17:01)
[2020-07-02] MEDS ORDERED: DITROPAN 5MG TAB5 MG PO (17:01)
[2020-07-02] MEDS ORDERED: NYSTATIN POWDER15 GM TOP (17:01)
[2020-07-02] MEDS ORDERED: MELATIN 3 MG-11 TAB PO (17:02)
[2020-07-02] MEDS ORDERED: SYNTHROID0.075 MG/T PO (17:02)
[2020-07-02] MEDS ORDERED: GLUCOSAMINE SU500 M2 PO (17:03)
[2020-07-02] MEDS ORDERED: CYMBALTA 60MG60 MG PO (17:03)
[2020-07-02] MEDS ORDERED: MULTAQ400 MG PO (17:04)
[2020-07-02] MEDS ORDERED: DULCOLAX STOOL100 MG PO (17:04)
[2020-07-02] MEDS ORDERED: TYLENOL PM EXTR1 TA1 PO (17:05)
[2020-07-02] MEDS ORDERED: TIAZAC180 MG PO (17:06)
[2020-07-02] MEDS ORDERED: CELEBREX 200MG200 MG PO (17:06)
--- NOTE | 2020-07-02 18:45 | NUR ---
RECEIVED REPORT FROM CAITLIN IN ER, MET PATIENT IN ROOM, SHE TRANSFERRED TO RECLINER WITH STANDBY ASSIST. SHE STATES SHE IS TIRED FROM HER HEART RACING ALL DAY. SHE IS AWARE OF THE CARDIOVERSION THIS MORNING. NEW CARDIAC MEDICATIONS ADMINISTERED. DID PLACE DIET ORDER FOR DINNER ONLY AND CHANGED ORDER BACK TO NPO.
[2020-07-02 19:32] VITALS: BP 152/79; PULSE 66; TEMP 98.2
--- NOTE | 2020-07-02 20:08 | NUR ---
Assessment completed. Pt resting in bed. Reports headache 5/10, PRN tramadol administered. Heart rhythm regular, rate slightly tachy between 100-110 bpm. Denies chest pain, shortness of breath, or dizziness. INT to right forearm intact, flushes easily. Will continue to monitor.
[2020-07-02] MEDS ORDERED: MIRALAX PA17 GM/Dose PO (20:24)
[2020-07-02 23:26] LABS: FOLATE (FOLIC ACID) >20.0 ng/mL (7.0-31.4)
[2020-07-03] VITALS (9 sets, daily range): BP systolic 121–190; BP diastolic 50–97; PULSE 55–105; TEMP 98–98.8
[2020-07-03 06:07] LABS: COLLECTION METHOD CLEAN CATCH
[2020-07-03 06:13] LABS: PH 6 (5-8); SQUAMOUS EPITHELIAL 0-2 /hpf; URINE APPEARANCE Clear; URINE BACTERIA None Seen /hpf; URINE BILIRUBIN Negative (NEGATIVE); URINE BLOOD Negative (NEGATIVE); URINE COLOR Straw; URINE GLUCOSE Negative (NEGATIVE); URINE KETONE Negative (NEGATIVE); URINE LEUKOCYTE ESTERASE Negative (NEGATIVE); URINE NITRATE Negative (NEGATIVE); URINE PROTEIN(semi-quant) Negative (NEGATIVE); URINE RBC 0-2 /hpf; URINE UROBILINOGEN Negative (NEGATIVE)
--- NOTE | 2020-07-03 06:25 | NUR ---
Pt had uneventful shift. Rested in bed throughout night, complained of moderate back pain and headache a few times, Relieved by PRN tramadol. Pt has had nothing to eat or drink since midnight except for 1 pill with small sip of water around 0400. Heart rate remains slightly tachy, currently at 110 on telemetry.
[2020-07-03 07:35] LABS: BASO % 0.6 % (0.0-2.0); EOS # 0.7 (0.0-0.7); EOS % 13.7 % (0-4.0); GRAN # 2.5 (1.4-6.5); GRAN % 45.9 % (42.2-75.2); LYMPH # 1.6 (1.2-3.4); LYMPH % 28.8 % (20.0-51.0); MEAN CELL VOLUME 108 fl (80.0-100.0); MEAN CORPUSCULAR HEMOGLOBIN 34 pg (27.0-31.0); MEAN CORPUSCULAR HGB CONC 32 g/dl (33.0-37.0); MEAN PLATELET VOLUME 9.4 fl (7.4-10.4); MONO # 0.6 (0.1-0.6); MONO % 10.8 % (1.7-9.3); PLATELET COUNT 258 K/mm3 (130-400); RED BLOOD COUNT 3.21 M/mm3 (4.10-5.30); REDCELL DISTRIBUTION WIDTH-CV 13.2 % (11.5-14.5)
[2020-07-03 07:36] LABS: HEMATOCRIT 34.8 % (37.0-47.0)
--- NOTE | 2020-07-03 07:39 | NUR ---
PATIENT IS RESTING IN BED, EYES ARE CLOSED. IT WAS REPORTED THAT PATIENT DID NOT SLEEP WELL AND WOULD LIKE TO REST PRIOR TO THE PROCEDURE THIS MORNING. DID RECEIVE CALL FROM [facility] IN [facility] CLERK WHO SAID THEY ARE PLANNING FOR PROCEDURE TO START AT 0830. CALL LIGHT IS WITHIN REACH.
[2020-07-03 07:55] LABS: CALCIUM 8.3 mg/dL (8.4-10.2); CREATININE, serum 1.01 (0.52-1.25); POTASSIUM 4.5 mmol/L (3.4-5.0)
--- NOTE | 2020-07-03 10:20 | NUR ---
Gypsum Roofer met with the patient and the patient's daughter, Karla to complete initial intake. The patient lives in [place] with her Deny. Karla is supportive. The patient denies DME use and is independent with ADLs. SW discussed starting HHS. The patient declined. She states that her has HHS with [facility]. The patient's PCP is Dr. Lyons and patient receives medications from [facility]. The patient does not have advanced directives in the EMR but states they are complete and designate her and daughter. The patient plans to return home at discharge. There are no additional needs at this time.
--- NOTE | 2020-07-03 13:48 | NUR ---
Primary nurse was assisted with [id number] patient care by [employer] Student Rosa Quiroga and [employer] instructor Yennifer Hyman RN-.
--- NOTE | 2020-07-03 19:10 | NUR ---
Received report from RENO Valderrama. Pt resting in chair at this time. Reports moderate back pain, requests PRN pain medication. This RN will administer per orders.
--- NOTE | 2020-07-03 19:34 | NUR ---
REPORT GIVEN TO ONCOMING SHIFT.
--- NOTE | 2020-07-03 21:30 | NUR ---
Assessment completed. Pt resting in bed, reports unable to get comfortable due to chronic back pain and feelings of restlessness. Reports minimal relief from PRN [place], states pain is 5/10. Pt would like to wait before taking any more pain medications. INT to right forearm intact, flushes easily. Heart rhythm and rate regular, denies chest pain. Will continue to monitor.
[2020-07-04 03:42] VITALS: BP 123/60; PULSE 55; TEMP 98.2
--- NOTE | 2020-07-04 05:40 | NUR ---
Pt has slept intermittently throughout shift. When awake, complains of moderate ache in back, partially relieved by alternating PRN [place] and Tramadol. Ambulates independently in room. Heart rhythm has been normal sinus on tele, rate in 60s throughout night. Pt had one episode of Afib after ambulating to bathroom around 0230. Heart rate was 100-110, decreased to 90s after pt laid down. After a few minutes, pt converted back to NSR with rates in the 60s.
[2020-07-04 07:00] LABS: BASO # 0.1 (0.0-0.2); EOS # 0.6 (0.0-0.7); EOS % 11.6 % (0-4.0); GRAN # 2.3 (1.4-6.5); GRAN % 43.6 % (42.2-75.2); HEMOGLOBIN 10.5 g/dl (12.5-16.0); LYMPH # 1.7 (1.2-3.4); LYMPH % 33.4 % (20.0-51.0); MEAN CELL VOLUME 109 fl (80.0-100.0); MEAN CORPUSCULAR HEMOGLOBIN 34 pg (27.0-31.0); MEAN CORPUSCULAR HGB CONC 31 g/dl (33.0-37.0); MEAN PLATELET VOLUME 9.2 fl (7.4-10.4); MONO # 0.5 (0.1-0.6); PLATELET COUNT 235 K/mm3 (130-400); RED BLOOD COUNT 3.13 M/mm3 (4.10-5.30); REDCELL DISTRIBUTION WIDTH-CV 13.2 % (11.5-14.5)
[2020-07-04 07:07] LABS: HEMATOCRIT 34.1 % (37.0-47.0)
[2020-07-04 07:13] LABS: CALCIUM 8.3 mg/dL (8.4-10.2); CREATININE, serum 0.85 (0.52-1.25); MAGNESIUM 2.1 mg/dL (1.6-2.3); POTASSIUM 4.1 mmol/L (3.4-5.0)
[2020-07-04 07:41] VITALS: BP 158/65; PULSE 69; TEMP 97.9
--- NOTE | 2020-07-04 08:56 | NUR ---
Pt awake and alert upon entry, talkative, shift assessments complete, left Pt call light in reach. bed in lowest position.
[2020-07-04] MEDS ORDERED: BETAPACE 80MG80 MG PO (11:17)
[2020-07-04 11:35] VITALS: BP 142/56; PULSE 62; TEMP 97.4
--- NOTE | 2020-07-04 14:55 | NUR ---
Pt discharged to home, discussed discharge information with Pt, no questions asked, Pt escorted to ED enttrance, Pt left with family via private transportation.
== END 2020-07-04 14:58 | disposition home or self-care (01) | DRG 309 ==
LOC: COL.ER 14:29 → MEDICAL 16:02
PROVIDERS: Emergency Medicine; Physician Assistant; ADMIT Hospitalist
PROC: 4B02XSZ Measurement of Cardiac Pacemaker, External Approach (ICD-10-PCS; principal; 2020-07-02)
DX: I48.92 Unspecified atrial flutter (principal); N17.9 Acute kidney failure, unspecified; E87.3 Alkalosis; E03.9 Hypothyroidism, unspecified; I27.20 Pulmonary hypertension, unspecified; D64.9 Anemia, unspecified; E78.5 Hyperlipidemia, unspecified; M54.9 Dorsalgia, unspecified; G89.29 Other chronic pain; K21.9 Gastro-esophageal reflux disease without esophagitis; I45.10 Unspecified right bundle-branch block; N18.9 Chronic kidney disease, unspecified; F32.9 Major depressive disorder, single episode, unspecified; I12.9 Hypertensive chronic kidney disease with stage 1 through stage 4 chronic kidney disease, or unspecified chronic kidney disease; R79.89 Other specified abnormal findings of blood chemistry; Z95.0 Presence of cardiac pacemaker
CPT/HCPCS: 99232-AI; 99239; J2704

== ENCOUNTER → 2020-07-02 | Outpatient (CLI) | payer MEDICARE, BC | LOC: MHCPAIN 10:11 ==

== ENCOUNTER → 2020-08-06 | Outpatient (CLI) | payer MEDICARE, BC ==
[~2020-08-06] MED LIST changes: +00186-0370-20 IH; +BETAPACE 80MG80 MG PO; +CYMBALTA 30MG30 MG PO; +CYMBALTA 60MG60 MG PO; +DITROPAN 5MG TAB5 MG PO; +GLUCOPHAGE500 MG/TAB PO; +GLUCOSAMINE SU500 M2 PO; +LIDODERM 5% PATC1 EA TP; +LOPID 600M600 MG/TAB PO; +LYRICA 150MG C150 MG PO; +MELATIN 3 MG-11 TAB PO; +MIRALAX PA17 GM/Dose PO; +ONE-A-DAY ESSE1 EACH PO; +PROAIR HFA0.09 MG/AC IH; +PROBIOTIC BLEN1 EACH PO; +PROTONIX 40MG T40 MG PO; +REQUIP 0.5MG0.5 MG PO; +SPIRIVA RE2.5 MCG/Ac IH; +SYNTHROID0.075 MG/T PO; +SYNTHROID0.1 MG/TAB PO; +TIAZAC180 MG PO; +TRIAMCINOLONE A15 G3 TP; +TYLENOL 500MG500 MG PO; +TYLENOL PM EXTR1 TA1 PO; +ZYRTEC 10MG10 MG PO
== END ==
LOC: MHCPAIN 12:13
DX: M47.817 Spondylosis without myelopathy or radiculopathy, lumbosacral region (principal); M54.5 Low back pain; M53.3 Sacrococcygeal disorders, not elsewhere classified; M96.1 Postlaminectomy syndrome, not elsewhere classified; G89.29 Other chronic pain
CPT/HCPCS: G0260; G0463; J1040; Q9967

== ENCOUNTER 2020-08-31 10:26 | Emergency (ER) | payer MEDICARE, BC ==
[~2020-08-31] VITALS: Ht 162.6 cm; Wt 65.9 kg
[2020-08-31 10:51] VITALS: TEMP 97.8
[2020-08-31] MEDS ORDERED: CYMBALTA 60MG60 MG PO (12:44)
[2020-08-31] MEDS ORDERED: CALCIUM CARBON650 M2 (12:45)
[2020-08-31] MEDS ORDERED: COLACE 100100 MG/CAP PO (12:46)
[2020-08-31] MEDS ORDERED: PROBICHEW 21 B1 EACH PO (12:46)
[2020-08-31 13:12] LABS: BASO # 0.1 (0.0-0.2); BASO % 0.8 % (0.0-2.0); EOS # 0.3 (0.0-0.7); EOS % 3.9 % (0-4.0); GRAN # 5.3 (1.4-6.5); GRAN % 70.8 % (42.2-75.2); HEMOGLOBIN 12.6 g/dl (12.5-16.0); LYMPH # 1.3 (1.2-3.4); MEAN CELL VOLUME 107 fl (80.0-100.0); MEAN CORPUSCULAR HEMOGLOBIN 34 pg (27.0-31.0); MEAN CORPUSCULAR HGB CONC 32 g/dl (33.0-37.0); MEAN PLATELET VOLUME 8.9 fl (7.4-10.4); MONO # 0.6 (0.1-0.6); MONO % 7.4 % (1.7-9.3); PLATELET COUNT 192 K/mm3 (130-400); RED BLOOD COUNT 3.75 M/mm3 (4.10-5.30); REDCELL DISTRIBUTION WIDTH-CV 12.4 % (11.5-14.5)
[2020-08-31 13:20] LABS: ALANINE AMINOTRANSFERASE 11 U/L (4-34); ALBUMIN 4.2 gm/dL (3.5-5.0); ALKALINE PHOSPHATASE 68 U/L (50-136); ANION GAP 5 mmol/L (7-16); AST,SGOT 23 U/L (15-37); BILIRUBIN,TOTAL 0.5 mg/dL (0.0-1.0); BLOOD UREA NITROGEN 26 mg/dL (7-17); CALCIUM 9.5 mg/dL (8.4-10.2); CARBON DIOXIDE 34 mmol/L (22-30); CHLORIDE 98 mmol/L (98-107); CREATININE, serum 0.98 (0.52-1.25); GLUCOSE 100 mg/dL (74-106); POTASSIUM 4.5 mmol/L (3.4-5.0); SODIUM 137 mmol/L (137-145); TOTAL PROTEIN 6.9 gm/dL (6.4-8.2)
[2020-08-31 13:41] LABS: C-REACTIVE PROTEIN < 0.5 mg/dL (0.0-0.9)
[2020-08-31 15:38] LABS: COLLECTION METHOD CLEAN CATCH
[2020-08-31 15:43] LABS: PH 7 (5-8); SQUAMOUS EPITHELIAL None Seen /hpf; URINE APPEARANCE Clear; URINE BACTERIA None Seen /hpf; URINE BILIRUBIN Negative (NEGATIVE); URINE BLOOD Negative (NEGATIVE); URINE COLOR Straw; URINE GLUCOSE Negative (NEGATIVE); URINE KETONE Negative (NEGATIVE); URINE LEUKOCYTE ESTERASE Negative (NEGATIVE); URINE NITRATE Negative (NEGATIVE); URINE PROTEIN(semi-quant) Negative (NEGATIVE); URINE RBC None Seen /hpf; URINE UROBILINOGEN Negative (NEGATIVE)
[2020-08-31 17:07] VITALS: BP 150/82; PULSE 82
== END 2020-08-31 17:08 | disposition home or self-care (01) ==
LOC: COL.ER 10:26
PROVIDERS: Emergency Medicine; Physician Assistant
DX: M54.5 Low back pain (principal); E86.0 Dehydration; G89.29 Other chronic pain; I10 Essential (primary) hypertension; I48.91 Unspecified atrial fibrillation; Z95.0 Presence of cardiac pacemaker; Z23 Encounter for immunization; Z88.8 Allergy status to other drugs, medicaments and biological substances; Z88.2 Allergy status to sulfonamides; Z79.01 Long term (current) use of anticoagulants; Z79.83 Long term (current) use of bisphosphonates; Z79.891 Long term (current) use of opiate analgesic; Z79.899 Other long term (current) drug therapy
CPT/HCPCS: J2405; J3010; J7030